=== PATIENT | male | born 1930 | race Caucasian/White ===

== ENCOUNTER 2017-01-12 08:55 | Emergency (ER) | payer MEDICARE ==
[~2017-01-12] VITALS: Ht 172.7 cm; Wt 75.0 kg
[2017-01-12 08:58] VITALS: BP 136/53; PULSE 52; RESP 17; O2SAT 100
--- NOTE | 2017-01-12 09:22 | ED.REPORT ---
HPI-General Illness Date of Service Jan 12, 2017 ED Provider: Chalino Gallagher MD Pt is an 86 year old male with a hx of cataracts presenting to the ED complaining of diaphoresis onset just prior to arrival lasting for about 30 minutes. He is here with his for a battery replacement in her pacemaker and he went down to the coffee shop due to feeling diaphoresis, nausea, chills, and lightheaded. He reports that he attributed his symptoms to the fact that he and his had to be up at 0530 this morning and he hasn't had anything to eat. Denies chest pain, SOB, vomiting, or dizziness. Pt reports that the only medications he takes daily are for his eyes, and that he occasionally takes an Aspirin in the morning. Nursing Notes Stated Complaint: WEAKNESS Chief Complaint: General Complaint Nursing Notes Reviewed: Yes Allergies: Coded Allergies: Penicillins (Verified Allergy, Unknown, 01/12/17) General Time Seen by MD: 09:15 Chief Complaint Other (Diaphoresis) Hx Obtained From: Patient Arrived By: Walk-in Sudden in Onset?: Yes Onset Occurred: Just prior to arrival Symptom Duration: 16 - 30 minutes Severity: Current: No pain currently Severity: Maximum: No pain Recent Healthcare: No recent doctor visit, No recent hospitalization Similar Sx Previous: No Past Medical History Past Medical History cataracts Past Surgical History denies Smoking History Never Smoker Social History Alcohol Use: Denies alcohol use Drug Use: Denies drug use Ambulatory Status Independent Review of Systems Full Review of Systems Constitutional: Reports: Chills Respiratory: Denies: Shortness of breath Cardiovascular: Denies: Chest pain GI: Reports: Nausea, Denies: Vomiting Skin: Reports Diaphoresis Neurologic: Reports: Lightheaded, Denies: Dizziness Complete sys rev & neg: except as marked. Physical Exam Vital Signs Vital Signs Date Time Temp Pulse Resp B/P Pulse Ox O2 Delivery O2 Flow Rate FiO2 01/12/17 12:54 36.4 69 20 157/73 100 Room Air 01/12/17 10:45 69 20 157/73 100 Room Air 01/12/17 08:58 36.4 52 17 136/53 100 Room Air Initial VS: Reviewed General/Constitutional: Well-developed, Well-nourished Head / Eyes: Atraumatic, Normocephalic, PERRL ENT: Mucous membranes moist, Conjunctiva normal, No scleral icterus Neck: Supple, Non-tender, Full range of motion Respiratory: Breath sounds normal, Clear to auscultation, No respiratory distress Abdomen / GI: Soft, Non-tender, No guarding, No rebound, No distention Skin: Warm, Dry, No cyanosis Neurologic: Alert, Oriented, Nonfocal Psychiatric: Mood/affect normal, Behavior normal, Normal thought content Cardiovascular: Heart rate NL, Regular rhythm, Heart sounds NL, No murmurs Lower Extremity / Pelvis / MS: Atraumatic, No deformity, Neurologic intact, Vascular intact Bilateral trace edema in the lower extremities Interpretation & Diagnostics Lab Results Interpretation Result Diagram: 01/12/17 0919 01/12/17 0919 Test 01/12/17 09:19 White Blood Count 7.7th/mm3 (3.8-10.1) Red Blood Count 4.74mil/mm3 (4.40-5.80) Hemoglobin 14.1g/dL (13.8-17.2) Hematocrit 41.7% (41.0-50.0) Mean Corpuscular Volume 88.0fL (81-100) Mean Corpuscular Hemoglobin 29.7pg (27.0-35.0) Mean Corpuscular Hemoglobin Concent 33.8% (32.0-37.0) Red Cell Distribution Width 13.2% (12.3-15.4) Platelet Count 168bil/L (150-400) Neutrophils (%) (Auto) 61.6% (40-74) Lymphocytes (%) (Auto) 26.0% (14-46) Monocytes (%) (Auto) 8.7% (4-12) Eosinophils (%) (Auto) 3.5% (0-5) Basophils (%) (Auto) 0.1% (0-3) Sodium Level 140mEq/L (134-144) Potassium Level 4.5mEq/L (3.5-5.2) Chloride Level 101mEq/L (97-108) Carbon Dioxide Level 27mmol/L (18-29) Blood Urea Nitrogen 21mg/dL (8-27) Creatinine 0.95mg/dL (0.76-1.27) Estimat Glomerular Filtration Rate 80mL/min (>59) Glucose Level 120mg/dL (60-99) Calcium Level 9.1mg/dL (8.5-10.1) Magnesium Level 2.3mg/dL (1.6-2.6) Total Bilirubin 0.6mg/dL (0.0-1.2) Aspartate Amino Transf (AST/SGOT) 19U/L (0-50) Alanine Aminotransferase (ALT/SGPT) 16U/L (0-44) Alkaline Phosphatase 59U/L (25-160) Troponin T 0.010ug/L (0.0-0.011) Total Protein 6.8g/dL (6.4-8.4) Albumin 4.1g/dL (3.4-5.0) ECG Interpretation ECG Interpretation: Sinus bradycardia with a rate of 50. Less than [address] elevation in v2. T wave inversion in [address] otherwise no [address]-T changes. No previous for comparision. Time: 09:05 X-Ray Chest Interpretation Chest Xray Interpretation: IMPRESSION: 1. No acute cardiopulmonary findings. 2. Sclerotic, chondroid lesion within the proximal left humerus. No prior comparisons are available to determine acuity of this finding. Dedicated views of the shoulder are recommended. Additionally, if the patient endorses focal pain in this region, further characterization with contrast-enhanced MRI is recommended. Dictated by: Winifred Townsend M.D. on 01/12/2017 at 10:05 View: Portable, 1 view Interpretation / Wet Read by: Interpret - Radiologist Re-Eval/Medical Decision Med Decision/Clinical Course 86-year-old male sitting with episode of fatigue, diaphoresis after not eating this morning for quite some time. He believes he was hungry. He was R in the hospital so decided to come in for evaluation. He felt better by the time he got to the ER. He felt much better after IV fluids. His labs do not show any emergent etiology. Troponins are negative. EKG no changes. Chest x-ray does shows a sclerotic lesion of the humerus which he will need followed up by his primary doctor with MRI. Did not see any acute etiology for his symptoms. Patient requested to go home. He will be discharged home with return precautions follow-up primary doctor. Time of Eval: 11:27 Patient Status: Condition improved Re-Evaluation/Progress Note: Discussed x ray and lab results and plan for discharge. Pt understands and agrees with plan. Counseled Regarding: Diagnosis, Lab results, Need for follow-up, When/why to return to ED Discharge & Departure Primary Impression: Near syncope Additional Impression: Lesion of left humerus Disposition: Home Discharge Condition All VS Reviewed: Yes Condition: Improved Patient Instructions: Near Syncope (ED) Additional Instructions: Your labs, x ray and EKG all looked reassuring today. Your x ray did show signs of a sclerotic humeral lesion, for which you will need to follow up with your primary care doctor for an MRI. No sign of dangerous cause for your symptoms was identified today. Return to the ER if you develop any new or worsening symptoms. Scribe Attestation Portions of this note were transcribed by Fidelina Tran. I, Dr. Gallagher personally performed the history, physical exam and medical decision-making; I reviewed and confirmed the accuracy of the information in the transcribed note. Signed by: Bryce Acuna, 01/12/2017. Chalino Gallagher MD Jan 12, 2017 09:21 FIDELINA TRAN Jan 12, 2017 09:46
[2017-01-12] MEDS ORDERED: 0.9% Sodium Chloride 500 ML IV ONE (09:46)
[2017-01-12 09:59] LABS: BASOPHILS % (AUTO) 0.1 % (0-3); EOSINOPHILS % (AUTO) 3.5 % (0-5); MONOCYTES % (AUTO) 8.7 % (4-12); Mean Corpuscular Hemoglobin 29.7 pg (27.0-35.0); NEUTROPHILS % (AUTO) 61.6 % (40-74); Platelet Count 168 bil/L (150-400)
--- NOTE | 2017-01-12 10:11 | DRSVH ---
PROCEDURE: X-RAY CHEST ONE VIEW, PORTABLE ([id number]) INDICATIONS: CHEST PAIN TECHNIQUE: One view of the chest was acquired. COMPARISON: [facility], , SHOULDER MINIMUM 2VIEW RIGHT, 12/28/2013, 11:59. [facility], C R, CERVICAL SPINE 2 OR 3 VIEWS, 08/12/2016, 12:28. [facility], CHEST 2 VIEW, 04/07/2010, 13: 16. [facility], CHEST 2 VIEW, 12/28/2007, 10:32. [facility], CHEST 2 VIEW, 013, 15:16. FINDINGS: Surgical changes and devices: None. Lungs and pleura: A sclerotic, chondroid lesion is present within the medullary portion of the proxim al left humerus. No prior comparisons are available to determine the acuity of this finding. Mediastinum: Mediastinal contours appear normal. Heart size is normal. Bones and chest wall: No suspicious bony lesions. Overlying soft tissues appear unremarkable. IMPRESSION: 1. No acute cardiopulmonary findings. 2. Sclerotic, chondroid lesion within the proximal left humerus. No prior comparisons are available t o determine acuity of this finding. Dedicated views of the shoulder are recommended. Additionally, if the patient endorses focal pain in this region, further characterization with contrast-enhanced MRI is recommended. Dictated by: Winifred Townsend M.D. on 01/12/2017 at 10:05 Approved by: Winifred Townsend M.D. on 01/12/2017 at 10:10
[2017-01-12 10:34] LABS: TROPONIN T 0.01 ug/L (0.0-0.011)
[2017-01-12 10:45] VITALS: BP 157/73; PULSE 69; RESP 20; O2SAT 100
[2017-01-12 10:45] LABS: Magnesium 2.3 mg/dL (1.6-2.6)
[2017-01-12 12:54] VITALS: BP 157/73; PULSE 69; RESP 20; O2SAT 100
== END 2017-01-12 12:30 | disposition home or self-care (01) ==
LOC: SED 08:55
DX: R55 Syncope and collapse (principal); M89.222 Other disorders of bone development and growth, left humerus; Z88.0 Allergy status to penicillin
CPT/HCPCS: 36415; 71010; 80053; 83735; 84484; 85025; 93005; 96360; 99285; J7030